=== PATIENT | male | born 1985 | race Caucasian/White ===

== ENCOUNTER 2020-11-29 19:40 | Emergency (ER) | payer BC ==
--- NOTE | 2020-11-29 20:10 | EDM.PDOC ---
ED HPI GENERAL MEDICAL PROBLEM - General Chief Complaint: Chest Pain Stated Complaint: CHEST PAIN, DIZZINESS Time Seen by Provider: 11/29/20 19:46 Source of Information: Reports: Patient History Limitations: Reports: No Limitations - History of Present Illness INITIAL COMMENTS - FREE TEXT/NARRATIVE: Patient is a 35-year-old male presents today for a flutter tanning wheel filler the center of his chest. Patient states that he has been having it for the past few weeks occasionally last for a few seconds. Patient was at work today and it lasted longer positive few minutes remain concerned and made him come in. He states that the makes him calm enough to make it worse and normally resolves on his own he has not had a work-up for. Denies any other associated symptoms such as chest pain shortness of breath weight changes or heat or cold intolerance. - Related Data Allergies Allergy/AdvReac Type Severity Reaction Status Date / Time No Known Allergies Allergy Verified 11/29/20 19:45 Home Meds: Home Meds Telmisartan 40 mg PO 11/29/20 [History] Past Medical History - Past Health History Medical/Surgical History: Denies Medical/Surgical History Cardiovascular History: Reports: Hypertension - Infectious Disease History Infectious Disease History: Reports: Chicken Pox Social & Family History - Family History Family Medical History: No Pertinent Family History - Tobacco Use Tobacco Use Status *Q: Never Tobacco User - Recreational Drug Use Recreational Drug Use: No ED ROS GENERAL - Review of Systems Review Of Systems: See Below Constitutional: Reports: No Symptoms HEENT: Reports: No Symptoms Respiratory: Reports: No Symptoms Cardiovascular: Reports: Palpitations Endocrine: Reports: No Symptoms GI/Abdominal: Reports: No Symptoms : Reports: No Symptoms Musculoskeletal: Reports: No Symptoms Skin: Reports: No Symptoms Neurological: Reports: No Symptoms Psychiatric: Reports: No Symptoms Hematologic/Lymphatic: Reports: No Symptoms Immunologic: Reports: No Symptoms ED EXAM, GENERAL - Physical Exam Exam: See Below Exam Limited By: No Limitations General Appearance: Alert, WD/WN, No Apparent Distress Eye Exam: Bilateral Eye: EOMI, PERRL Respiratory/Chest: No Respiratory Distress, Lungs Clear, Normal Breath Sounds Cardiovascular: Normal Peripheral Pulses, Regular Rate, Rhythm GI/Abdominal: Normal Bowel Sounds, Soft, Non-Tender Extremities: Normal Inspection Neurological: Alert, Oriented, CN II-XII Intact, Normal Cognition, Normal Gait #1 Interpretation EKG Date: 11/29/20 Time: 19:42 Rhythm: NSR Rate (Beats/Min): 86 ST-T: Normal Course - Vital Signs Last Recorded V/S: Last Vital Signs Temp 97.5 F 11/29/20 19:47 Pulse 62 11/29/20 22:24 Resp 17 11/29/20 22:24 BP 101/54 L 11/29/20 22:24 Pulse Ox 96 11/29/20 22:24 - Orders/Labs/Meds Orders: Active Orders 24 hr Category Date Time Status EKG Documentation Completion [RC] STAT Care 11/29/20 20:07 Active Labs: Laboratory Tests 11/29/20 11/29/20 11/29/20 Range/Units 20:00 20:00 22:00 WBC 6.91 (4.0-11.0) K/uL RBC 4.77 (4.50-5.90) M/uL Hgb 15.4 (13.0-17.0) g/dL Hct 43.1 (38.0-50.0) % MCV 90.4 (80.0-98.0) fL MCH 32.3 H (27.0-32.0) pg MCHC 35.7 (31.0-37.0) g/dL RDW Std Deviation 43.4 (28.0-62.0) fl RDW Coeff of [place] 13 (11.0-15.0) % Plt Count 146 L (150-400) K/uL MPV 10.40 (7.40-12.00) fL Neut % (Auto) 51.3 (48.0-80.0) % Lymph % (Auto) 34.3 (16.0-40.0) % [place] % (Auto) 11.0 (0.0-15.0) % Eos % (Auto) 3.0 (0.0-7.0) % Baso % (Auto) 0.4 (0.0-1.5) % Neut # (Auto) 3.5 (1.4-5.7) K/uL Lymph # (Auto) 2.4 (0.6-2.4) K/uL [place] # (Auto) 0.8 (0.0-0.8) K/uL Eos # (Auto) 0.2 (0.0-0.7) K/uL Baso # (Auto) 0.0 (0.0-0.1) K/uL Nucleated RBC % 0.0 /100WBC Nucleated RBCs # 0 K/uL Sodium 141 (136-148) mmol/L Potassium 4.0 (3.5-5.1) mmol/L Chloride 105 (98-107) mmol/L Carbon Dioxide 27.2 (21.0-32.0) mmol/L BUN 19 H (7.0-18.0) mg/dL Creatinine 1.2 (0.8-1.3) mg/dL Est Cr Clr Drug Dosing 86.74 mL/min Estimated GFR (MDRD) > 60.0 ml/min Glucose 95 (74-106) mg/dL Calcium 8.7 (8.5-10.1) mg/dL Total Bilirubin 0.8 (0.2-1.0) mg/dL AST 62 H (15-37) IU/L ALT 78 H (14-63) IU/L Alkaline Phosphatase 80 (46-116) U/L Creatine Kinase 2500 H 2070 H (26-308) U/L Troponin I < 0.050 (0.000-0.056) ng/mL Total Protein 7.1 (6.4-8.2) g/dL Albumin 4.1 (3.4-5.0) g/dL Globulin 3.0 (2.6-4.0) g/dL Albumin/Globulin Ratio 1.4 (0.9-1.6) Meds: Medications Discontinued Medications Generic Name Dose Route Start Last Admin Trade Name Freq PRN Reason Stop Dose Admin Sodium Chloride 1,000 mls @ 999 mls/hr 11/29/20 20:43 11/29/20 21:02 Normal Saline IV 11/29/20 21:43 999 mls/hr .BOLUS ONE Administration - Re-Assessments/Exams Free Text/Narrative Re-Assessment/Exam: 11/29/20 23:17 Patient CK was elevated patient was given 1 L of CK has now downtrending. Patient feels fine. Patient will be leaving go back home as he is here in town working will try to follow-up with cardiology then will still provide patient with number to try to call for cardiology follow-up for Holter monitor if still in town. Departure - Departure Time of Disposition: 23:18 Disposition: Home, Self-Care 01 Condition: Good Clinical Impression: Palpitation Instructions: Palpitations, [id number] Forms: ED Department Discharge Additional Instructions: The following information is given to patients seen in the emergency department who are being discharged to home. This information is to outline your options for follow-up care. We provide all patients seen in our emergency department with a follow-up referral. The need for follow-up, as well as the timing and circumstances, are variable depending upon the specifics of your emergency department visit. If you don't have a primary care physician on staff, we will provide you with a referral. We always advise you to contact your personal physician following an emergency department visit to inform them of the circumstance of the visit and for follow-up with them and/or the need for any referrals to a consulting specialist. The emergency department will also refer you to a specialist when appropriate. This referral assures that you have the opportunity for follow-up care with a specialist. All of these measure are taken in an effort to provide you with optimal care, which includes your follow-up. Under all circumstances we always encourage you to contact your private physician who remains a resource for coordinating your care. When calling for follow-up care, please make the office aware that this follow-up is from your recent emergency room visit. If for any reason you are refused follow-up, please contact the [facility] Emergency Department at and asked to speak to the emergency department charge nurse. Please follow up with your primary care physician. If you do not have a primary care physician, see below: Cardiac Rehabilitation at [address] [id number] You were seen today for palpitations. We did EKG labs and also x-ray that within normal limits. We spoke about this that when you have the palpitations the EKG we will not look in the past that show if you did have any arrhythmias that we would likely require you to have a Holter monitor. Above the number for cardiology can call if you are in town tomorrow to have a call Holter monitor. He also states that she will be going home pretty soon and will follow up with cardiology then. Your creatinine kinase also elevated likely due to you working outside in signs of being dehydrated. Recommend you continue to take a lot of fluids while working. If you have any other concerning signs or symptoms please return to the ED. Sepsis Event Note (ED) - Evaluation Sepsis Screening Result: No Definite Risk - Focused Exam Vital Signs: Vital Signs Temp Pulse Resp BP Pulse Ox 11/29/20 22:24 62 17 101/54 L 96 11/29/20 20:25 79 17 112/62 97 11/29/20 19:47 97.5 F 82 17 123/72 96 - My Orders Last 24 Hours: My Active Orders 11/29/20 20:07 EKG Documentation Completion [RC] STAT - Assessment/Plan Last 24 Hours: My Active Orders 11/29/20 20:07 EKG Documentation Completion [RC] STAT Plan: Patient is a 35-year-old male who presents today for palpitations. Patient EKG is sinus rhythm not show any arrhythmias. Patient on exam has no complaints. Will obtain labs EKG x-ray and reassess.
[2020-11-29 20:37] LABS: BLOOD UREA NITROGEN,BUN 19 mg/dL (7.0-18.0); CARBON DIOXIDE,CO2 27.2 mmol/L (21.0-32.0); CHLORIDE,CL 105 mmol/L (98-107); GLUCOSE RANDOM 95 mg/dL (74-106); SODIUM,NA 141 mmol/L (136-148)
[2020-11-29] MEDS ORDERED: Sodium Chloride 0.9% 1,000 ML IV ONE (20:43)
--- NOTE | 2020-11-29 20:43 | CR ---
For Patients: As a result of the Cures Act, medical imaging exams and procedure reports are released immediately into your electronic medical record. You may view this report before your referring provider. If you have questions, please contact your health care provider. INDICATION: Chest Palpitation TECHNIQUE: Chest radiograph 2 views COMPARISON: None FINDINGS: Mediastinum: The mediastinum is normal in appearance. The heart silhouette is normal in size and morphology. Lung: Both lungs are unremarkable in appearance. No sign of pleural effusion seen. No pneumothorax is identified. Bone and Soft tissue: Unremarkable for age. IMPRESSION: 1. No acute cardiopulmonary disease is seen. Dictated by: Yovani Anderson MD @ 11/29/2020 20:42:19 (Electronically Signed)
[2020-11-29 22:28] VITALS: PULSE 62
[2020-11-29 23:30] VITALS: BP 111/54
== END 2020-11-29 23:30 | disposition home or self-care (01) ==
LOC: MW.ED 19:40
DX: R00.2 Palpitations (principal); I10 Essential (primary) hypertension
CPT/HCPCS: 36415; 71046; 80053; 82550; 84484; 85025; 93005; 99285; J7030